=== PATIENT | female | born 1990 | race Caucasian/White ===

== ENCOUNTER 2022-04-13 15:30 | Emergency (ER) | payer OTHER ==
[2022-04-13 17:21] LABS: BASOPHIL 0.5 % (0-2); EOSINOPHIL 6.2 % (0-5); HGB 14.4 g/dl (12.5-16.0); LYMPHOCYTE 18.9 % (15-48); MCH 28.9 pg (25.0-31.0); MCV 90.4 fL (78.0-100.0); MONOCYTE 4.2 % (0-12); MPV 11.5 fL (6.0-9.5); NEUTROPHIL 69.9 % (41-80); NRBC 0; PLT 224 K/uL (150-400); RBC 4.98 M/uL (4.20-5.40); RDW 12.6 % (11.5-14.0); WBC 7.9 K/uL (4.0-10.5)
[2022-04-13 17:31] LABS: ALBUMIN 3.9 g/dL (3.4-5.0); BILIRUBIN - TOTAL 0.4 mg/dL (0.2-1.0); BUN/CREAT RATIO (CALC) 15.8 RATIO; CREATININE 0.76 mg/dL (0.51-0.95); GLOBULIN (CALCULATION) 3.2 g/dL; POTASSIUM 4.2 mmol/L (3.5-5.1); TOTAL PROTEIN 7.1 g/dL (6.4-8.2)
[2022-04-13 18:35] LABS: BILIRUBIN NEGATIVE (NEGATIVE); BLOOD NEGATIVE Ery/uL (NEGATIVE); CLARITY CLEAR (CLEAR); COLOR YELLOW (YELLOW); GLUCOSE (U) 1+ mg/dL (NORMAL); LEUKOCYTES NEGATIVE Leu/uL (NEGATIVE); NITRITE NEGATIVE (NEGATIVE); PROTEIN NEGATIVE (NEGATIVE); SPECIFIC GRAVITY <=1.005 (1.001-1.030); UROBILINOGEN 0.2 mg/dL (0.2-1.0); pH 6.5 (5.0-9.0)
[2022-04-13] MEDS ORDERED: CARAFATE1 GM PO (18:51)
[2022-04-13] MEDS ORDERED: ONDANSETRON ODT4 MG PO (18:51)
[2022-04-13] MEDS ORDERED: PEPCID AC20 MG PO (18:51)
== END 2022-04-13 19:20 | disposition home or self-care (01) ==
LOC: FER 15:30
PROVIDERS: Emergency Medicine
DX: K21.9 Gastro-esophageal reflux disease without esophagitis (principal); Z88.0 Allergy status to penicillin; Z88.1 Allergy status to other antibiotic agents
CPT/HCPCS: 36415; 80053; 81003; 82150; 83690; 85025; 99284